=== PATIENT | male | born 1945 | race African-American/Black ===

== ENCOUNTER → 2019-04-23 | Day surgery (SDC) | payer OTHER ==
[~2019-04-23] MED LIST: ACETAMINOPHEN 325 MG TABLET PO PRN; ALBUTEROL SULFATE 2.5 MG/3 ML NEBU. NEB PRN; ATROPINE 0.5 MG/5 ML DISP.SYRIN. IV PRN; BALANCED SALT IRRIG OPHTH SOLN 15 ML BOTTLE. IRR ONE; CATARACT OPHTH GEL 0.5 ML SYRINGE. OD ONE; CHONDROIT-SOD-HYALURONATE KIT. OD ONE; EPINEPHrine AMPULE 0.5 MG in BALANCED SALT IRRIG SOLN PLUS 500 ML IO ONE; ERYTHROMYCIN 0.5% OPHTH OINTMENT 1GM TUBE. OD ONE; HYALURONIDASE 75UNITS in LIDOCAINE 2% PF OPHTH 10 ML SYRINGE. OD ONE; IV RINGERS SOLUTION,LACTATED 1,000 ML IV SCH; KETOROLAC TROMETHAMINE 0.5% OPHTH SOLUTION BOTTLE. OD SCH; KETOROLAC TROMETHAMINE 0.5% OPHTH SOLUTION BOTTLE. ONE; LIDO/EPI IN BSS OPHTH 8 ML SYRINGE OD SCH; MIDAZOLAM HCL PF 2 MG/2 ML VIAL. IV PRN; MOXIFLOXACIN 0.5% OPHTH SOLUTION 3ML BOTTLE. OD SCH; ONDANSETRON PF 4 MG/2 ML VIAL. IV PRN; POVIDONE-IODINE 5% OPHTH SOLUTION 30ML BOTTLE. OD ONE; PROPOFOL 20 ML IV ONE; TETRACAINE 0.5% OPHTH SOLUTION 4ML BOTTLE. OD ONE; TETRACAINE 0.5% OPHTH SOLUTION 4ML BOTTLE. OU ONE; acetaZOLAMIDE 250 MG TABLET PO SCH; diphenhydrAMINE 50 MG/ML VIAL IV PRN; prednisoLONE ACETATE 1% OPHTH SUSPENSION 5ML BOTTLE. OD SCH; prednisoLONE ACETATE 1% OPHTH SUSPENSION 5ML BOTTLE. ONE
[2019-04-23] MEDS: MOXIFLOXACIN 0.5% OPHTH SOLUTION 3ML BOTTLE. OD SCH ×3 (07:18→07:27)
--- NOTE | 2019-04-23 09:30 | PDOC4 ---
Rt Phacoemulsion/HDK Date of Procedure: Apr 23, 2019 Preoperative Diagnosis: 1. Senile Cataract, Right Eye 2, Glaucoma, Right Eye Postoperative Diagnosis: 1. Senile Cataract, Right Eye 2. Glaucoma, Right Eye Anesthesia: Local (Block) with monitored anesthesia care Surgeon: Alejandro La D.O. Procedure: 1. Right Phacoemulsification with Intraocular Lens Implant 2. HDK Goniotomy, Right Eye Findings: 1. Senile Cataract 2. Glaucoma Indications: Worsening vision interfering with patient's lifestyle with severe glaucoma on pressure lowering medication. Narrative: After discussing the risks, complications and alternatives, including but not limited to loss of vision, infection, bleeding, swelling, anesthetic reaction, capsule rupture with vitreous loss, etc., the patient was given a peribulbar block under mild IV sedation and cardiac monitoring. Pressure was applied to the eye for approximately 10 minutes. The patient was transferred to the main operating room and prepped and draped in the usual sterile fashion and positioned under the microscope. A lid speculum was placed. A side port incision was made. A 2.4 mm clear corneal incisision was made. Epi-shugarcaine was injected. Viscoelastic was injected.Viscoelastic was injected onto the surface of the cornea. A Malyugin Ring was placed expanding the pupil. A continuous tear capsulorrhexis was performed, then hydrodissection was accomplished with balanced salt solution. The phacoemulsification needle was placed in the eye and the nucleus was emulsified. The remaining cortical material was removed with the irrigation and aspiration apparatus. The capsule was polished as needed. The posterior capsule was noted to be clean and intact. Viscoelastic was injected into the eye inflating the capsular bag. An intraocular lens was injected into the eye, unfolding as desired and was positioned in the capsular bag. The patient's head was positioned 30 away from the surgeon and the microscope was tilted 30 toward the surgeon. Viscoelastic was placed on the corneal. The surgical goniolens was placed on the corneal surface and the drainage angle was visualized. The HDK blade was inserted into the anterior chamber in a derek and meet fashion. The trabecular meshwork was unroofed for about 3 hours. A small amount of hemorrhage was noted but stopped with the viscoelastic. The microscope and patient's head were then returned to the typical positions.The viscoelastic was aspirated from the eye. The wound edges were hydrated with balanced salt solution and there were no leaks. Viscoelastic was injected over the limbal incisions. Antibiotic and steroid were placed on the eye. The lid speculum was removed, the eye was patched shut and a Gabriel shield applied. There were no complications and the patient was taken to the PACU in good condition. ALEJANDRO LA DO Apr 23, 2019 09:30
[2019-04-23 09:31] VITALS: BP 113/70
== END | disposition home or self-care (01) ==
LOC: SURG 06:19 → EEVIPCON 08:30
PROVIDERS: ATTEND Ophthalmology
DX: H25.11 Age-related nuclear cataract, right eye (principal); H40.89 Other specified glaucoma; I10 Essential (primary) hypertension; E78.00 Pure hypercholesterolemia, unspecified; Z98.890 Other specified postprocedural states; Z79.82 Long term (current) use of aspirin; Z85.118 Personal history of other malignant neoplasm of bronchus and lung
CPT/HCPCS: 65820; 66984; J0171; J2704; V2632